=== PATIENT | female | born 1990 | race Two or more races ===

== ENCOUNTER 2020-11-23 05:18 | Day surgery (SDC) | payer OTHER ==
[2020-11-16 10:03] VITALS: BMI 23.6
[2020-11-23 13:14] LABS: BASO % 0.4 % (0-2.0); EOS % 1.1 % (0-4.5); HEMATOCRIT 40.4 % (32.4-45.2); HEMOGLOBIN 13.3 GM/dL (10.7-15.3); LYMPH % 35.7 % (8-40); MCH 30.4 pg (25.7-33.7); MEAN CELL VOLUME 92.1 fl (80-96); MEAN PLT VOLUME 11.1 fl (7.5-11.1); MONO % 6.9 % (3.8-10.2); NEUT % 55.9 % (42.8-82.8); PLATELET COUNT 155 K/MM3 (134-434); RBC 4.38 M/mm3 (3.60-5.2); RDW 13.8 % (11.6-15.6); WHITE BLOOD COUNT 6.1 K/mm3 (4.0-10.0)
[2020-11-23 13:21] LABS: INR 1.07 (0.83-1.09); PROTHROMBIN TIME (PATIENT) 12.9 SEC (9.7-13.0)
[2020-11-23 13:38] LABS: CHLORIDE 108 mmol/L (98-107); POTASSIUM 3.7 mmol/L (3.5-5.1); SODIUM 141 mmol/L (136-145)
[2020-11-23 13:40] LABS: CALCIUM 8.6 mg/dL (8.5-10.1)
[2020-11-23 13:41] LABS: ALBUMIN 3.9 g/dl (3.4-5.0); ANION GAP 6 MMOL/L (8-16); BLOOD UREA NITROGEN 15.4 mg/dL (7-18); CO2 27 mmol/L (21-32); GLUCOSE,RANDOM 105 mg/dL (74-106)
[2020-11-23 13:43] LABS: CREATININE 0.8 mg/dL (0.55-1.3); SGOT/AST 17 U/L (15-37); SGPT/ALT 26 U/L (13-61)
[2020-11-23 13:45] LABS: BILIRUBIN,TOTAL 1.5 mg/dL (0.2-1)
[2020-11-23 13:46] LABS: ALK PHOS 92 U/L (45-117)
[2020-11-23] MEDS ORDERED: PROPOFOL 20 ML ONE (14:39)
[2020-11-23] MEDS ORDERED: MIDAZOLAM HCL 2 MG/2 ML SINGLE DOSE VIAL ONE (14:39)
[2020-11-23] MEDS ORDERED: ceFAZolin SODIUM 1 GM VIAL ONE (14:40)
[2020-11-23] MEDS ORDERED: DEXAMETHASONE SOD PHOSPHATE 4 MG/1 ML VIAL ONE (14:40)
[2020-11-23] MEDS ORDERED: KETOROLAC TROMETHAMINE 30 MG/1 ML VIAL ONE (14:40)
[2020-11-23] MEDS ORDERED: ONDANSETRON 4 MG/2 ML VIAL IVPUSH PRN (16:28)
[2020-11-23] MEDS ORDERED: oxyCODONE HCL 5 MG TABLET PO PRN ×2 (16:28)
[2020-11-23 18:07] VITALS: BP 98/66; PULSE 63; TEMP 98
== END 2020-11-23 18:15 | disposition home or self-care (01) ==
LOC: JASU-SURG 05:18
PROVIDERS: ATTEND Obstetrics & Gynecology
PROC: 0UBC7ZX Excision of Cervix, Via Natural or Artificial Opening, Diagnostic (ICD-10-PCS; principal; 2020-11-23 14:00)
DX: D06.0 Carcinoma in situ of endocervix (principal)
CPT/HCPCS: 36415; 80053; 84702; 85025; 85610; 86850; 86900; 86901; 94760

== ENCOUNTER 2022-01-25 08:17 | Emergency (ER) | payer OTHER ==
[2022-01-25 08:23] VITALS: BMI 24.7
[2022-01-25] MEDS ORDERED: CYCLOBENZAPRINE HCL 10 MG TABLET (FP) PO ONE (08:43)
[2022-01-25] MEDS ORDERED: KETOROLAC TROMETHAMINE 30 MG/1 ML VIAL IM ONE (08:44)
[2022-01-25] MEDS ORDERED: LIDOCAINE 5% TOPICAL PATCH TP ONE (08:55)
[2022-01-25] MEDS ORDERED: ACETAMINOPHEN 325 MG TABLET (FP) PO ONE (08:56)
[2022-01-25] MEDS ORDERED: CYCLOBENZAPRINE HCL 10 MG TABLET (FP) ONE (09:18)
[2022-01-25] MEDS ORDERED: ACETAMINOPHEN 325 MG TABLET (FP) ONE (09:18)
[2022-01-25] MEDS ORDERED: KETOROLAC TROMETHAMINE 30 MG/1 ML VIAL ONE (09:18)
[2022-01-25] MEDS ORDERED: LIDOCAINE 5% TOPICAL PATCH ONE (09:18)
[2022-01-25 09:54] LABS: URINE APPEARANCE CLEAR; URINE BILIRUBIN NEGATIVE (NEGATIVE); URINE COLOR YELLOW; URINE GLUCOSE (UA) NEGATIVE (NEGATIVE); URINE KETONE NEGATIVE (NEGATIVE); URINE LEUK ESTERASE NEGATIVE (NEGATIVE); URINE NITRITE NEGATIVE (NEGATIVE); URINE PROTEIN NEGATIVE (NEGATIVE)
[2022-01-25 09:56] LABS: HCG,QUALITATIVE URINE Negative
[2022-01-25 10:45] VITALS: BP 121/85; PULSE 90; TEMP 98.2
[2022-01-25] MEDS ORDERED: LIDOCAINE PATCH REMOVAL MC SCH (22:00)
== END 2022-01-25 10:30 | disposition home or self-care (01) ==
LOC: JER 08:17
PROC: 3E0233Z Introduction of Anti-inflammatory into Muscle, Percutaneous Approach (ICD-10-PCS; principal; 2022-01-25)
DX: M54.41 Lumbago with sciatica, right side (principal)
CPT/HCPCS: 81003; 84703; 96372; 99284-25

== ENCOUNTER 2024-03-11 11:38 | Emergency (ER) | payer OTHER ==
[2024-03-11 11:50] VITALS: BP 110/70; PULSE 77; RESP 18; TEMP 98.4; BMI 22.8
[2024-03-11] MEDS ORDERED: METOCLOPRAMIDE HCL INJECTION 10 MG/2 ML VIAL ONE (12:48)
[2024-03-11] MEDS: SODIUM CHLORIDE 0.9% 1000 ML INFUS.BAG IV ONE (13:03)
[2024-03-11] MEDS: METOCLOPRAMIDE HCL INJECTION 10 MG/2 ML VIAL IVPUSH ONE (13:03)
[2024-03-11 13:19] LABS: BASO % 0.9 % (0-2.0); EOS % 1.3 % (0-4.5); HEMATOCRIT 38.9 % (32.4-45.2); HEMOGLOBIN 12.6 GM/dL (10.7-15.3); LYMPH % 45.5 % (8-40); MCH 29.2 pg (25.7-33.7); MCHC 32.5 g/dl (32.0-36.0); MEAN CELL VOLUME 89.8 fl (80-96); MEAN PLT VOLUME 8.8 fl (7.5-11.1); MONO % 5.3 % (3.8-10.2); PLATELET COUNT 199 10^3/uL (134-434); RBC 4.33 M/mm3 (3.60-5.2); RDW 13.7 % (11.6-15.6); WHITE BLOOD COUNT 5.1 K/mm3 (4.0-10.0)
[2024-03-11 13:28] LABS: INR 1.19 (0.83-1.09); PROTHROMBIN TIME (PATIENT) 13.8 SEC (9.7-13.0)
[2024-03-11 13:30] LABS: ACTIVATED PTT 32.6 SECONDS (25.2-36.5)
[2024-03-11 13:58] LABS: POTASSIUM 3.8 mmol/L (3.5-5.1)
[2024-03-11 13:59] LABS: CALCIUM 8.7 mg/dL (8.5-10.1)
[2024-03-11 14:00] LABS: ALBUMIN 3.6 g/dl (3.4-5.0)
[2024-03-11 14:03] LABS: CREATININE 0.8 mg/dL (0.55-1.3)
[2024-03-11 14:04] LABS: BILIRUBIN,TOTAL 1.6 mg/dL (0.2-1)
[2024-03-11 14:05] LABS: TOT PROT 6.6 g/dl (6.4-8.2)
[2024-03-11 14:43] LABS: EPI CELLS 10 /uL (0-25.1); HYALINE CASTS 0 /uL (0-3.1); PH,URINE 6.5 (5.0-8.0); URINE APPEARANCE CLEAR; URINE BACTERIA 524 /uL (0-1359); URINE BILIRUBIN NEGATIVE (NEGATIVE); URINE COLOR YELLOW; URINE GLUCOSE (UA) NEGATIVE (NEGATIVE); URINE KETONE NEGATIVE (NEGATIVE); URINE LEUK ESTERASE TRACE (NEGATIVE); URINE NITRITE NEGATIVE (NEGATIVE); URINE PROTEIN NEGATIVE (NEGATIVE); URINE RBC 10 /uL (0-23.9); URINE UROBILINOGEN 0.2 mg/dL (0.2-1.0); URINE WBC 9 /uL (0-25.8)
== END 2024-03-11 16:06 | disposition home or self-care (01) ==
LOC: JER 11:38
PROC: 3E033GC Introduction of Other Therapeutic Substance into Peripheral Vein, Percutaneous Approach (ICD-10-PCS; principal; 2024-03-11)
PROC: 3E033GC Introduction of Other Therapeutic Substance into Peripheral Vein, Percutaneous Approach (ICD-10-PCS; 2024-03-11)
DX: R51.9 Headache, unspecified (principal); R20.2 Paresthesia of skin; R11.0 Nausea; H53.149 Visual discomfort, unspecified
CPT/HCPCS: 36415; 70450-TC; 80053; 80307; 81003; 84703; 85025; 85610; 85730; 99284-25